=== PATIENT | female | born 1995 | race Caucasian/White ===

== ENCOUNTER → 2018-03-09 11:29 | Outpatient (CLI) | payer OTHER, SELFPAY ==
[2018-03-09 12:03] LABS: Add Manual Diff / Slide Review NO; Basophils Percent Auto 0.8 % (0-2); Eosinophils Percent Auto 0.9 % (2-4); Hematocrit 43.6 % (36-46); Lymphocytes Percent Auto 21.3 % (25-40); Mean Corpuscular HGB Conc 34.4 % (30-36); Mean Corpuscular Volume 90.1 fL (80-100); Monocytes Percent Auto 4.3 % (3-14); Neutrophils Absolute Auto 5100 /uL (3000-5900); Neutrophils Percent Auto 72.7 % (50-75); Platelet Count 270 X10^3/uL (150-400); Red Blood Cell Count 4.84 X10^6/uL (4.0-5.2); Red Cell Distribution Width 12.1 % (11.6-14.8)
[2018-03-09 15:59] LABS: Hepatitis B Surface Antigen NEGATIVE s/c (NEGATIVE); Rubella Antibody IgG 37.6 IU/mL (>15)
[2018-03-09 16:16] LABS: HIV 1 and 2 Antibody NEGATIVE (NEGATIVE); Hep C Virus Ab w/Reflex Quant NEGATIVE s/c (NEGATIVE)
[2018-03-10 14:03] LABS: Varicella IgG Antibody < 135.00 Index (< 135.00)
[2018-03-11 13:46] LABS: HSV 2 IGG AB < 0.90 index (< 0.90); HSV1IGG < 0.90 index (< 0.90)
[2018-03-12 15:30] LABS: Rapid Plasma Reagin NON REACTIVE
== END ==
PROVIDERS: Visit Provider Obstetrics & Gynecology
DX: Z34.91 Encounter for supervision of normal pregnancy, unspecified, first trimester (principal)
CPT/HCPCS: 36415; 80055; 86695; 86696; 86703; 86787; 86803; 86850; 86900; 86901; 87086

== ENCOUNTER 2018-05-04 08:54 | Day surgery (SDC) | payer OTHER, SELFPAY ==
[2018-05-01 08:24] VITALS: BMI 26.3
--- NOTE | 2018-05-04 | PATH_ITS ---
[facility] Accession Number: [id number] . 01 Material submitted: . PRODUCTS OF CONCEPTION . 02 Diagnosis: Products of Conception: Products of conception (chorionic villi) identified. MRV/05/06/2018 . 02 Electronically signed: . Shelly Davis MD, Pathologist NPI- [id number] . 01 Gross description: . Received in formalin, labeled POC, are multiple fragments of red-brown hemorrhagic spongy tissue (8.5 x 8.0 x 1.5 cm in aggregate). No tissue is identified. Shrimp Packer tissue submitted in cassettes A1-A4. ([id number]) /MRV . 02 Pathologist provided ICD-10: O02.1 . 02 CPT . 642274 Specimen Comment: A duplicate report has been generated due to demographic updates. Performed at: [facility] [address] [id number] MD Kanu Tena MD Phone: [phone] Performed at: 02 [facility] [place] [address] [place], [place] [id number] MD Jose Olson MD Phone: [phone]
[2018-05-04 09:07] VITALS: BP 110/77; PULSE 84; RESP 12; TEMP 36.8; O2SAT 98; BMI 26.3
[2018-05-04] MEDS: LACTATED RINGERS 1,000 ML 100 ML IV (09:29)
--- NOTE | 2018-05-04 10:39 | PM.PREOP ---
Pre-operative Note Interval Note Pre-op Check: Yes History & Physical exam performed today by Physician Changes: No
--- NOTE | 2018-05-04 10:39 | PM.HP.1 ---
History of Present Illness Date Patient Seen: 05/04/18 Time Patient Seen: 10:39 Chief complaint: D&C Narrative: Patient is a 23-year-old 1 para 0 with a missed AB at 13 weeks. Fetus measuring 9 weeks. Patient started light bleeding 3 days ago. Patient History Medical History Missed (Acute) Family & Social History Social History: household members spouse,family Meds Allergies Allergy/AdvReac Type Severity Reaction Status Date / Time No Known Drug Allergies Allergy Unverified 05/01/18 08:25 Exam Vital Signs (past 8 hours): - 05/04/18 09:07 Temperature 98.3 F Pulse Rate 84 Respiratory Rate 12 Blood Pressure 110/77 Pulse Oximetry 98 Oxygen Delivery Method Room Air Narrative Exam Narrative: HEENT: No thyromegaly, no anterior cervical or supraclavicular lymphadenopathy. Lungs:Clear to auscultation bilaterally, no wheezes. Cardiovascular: Regular rate and rhythm, no murmurs, rubs, or gallops. Abdomen: No scars. No hepatosplenomegaly. No masses palpable. External genitalia: Normal Vagina: Small amount of blood Cervix: Normal Bimanual exam: 9 week Week size uterus. Mobile.] Rectal: No masses. Assessment & Plan (1) Missed with demise before 20 completed weeks of gestation: Current visit: Yes Status: Acute Plan: Assessment/Plan Narrative: Assessment: 23-year-old 1 para 0 with a 9 week missed Plan: Suction D&C The risks, benefits, and alternatives to the procedure were explained to the patient. The risks including bleeding, infection, and uterine perforation. Patient understands these risks and agrees to proceed. A full P AR-Q was held and consent form was signed.
--- NOTE | 2018-05-04 10:45 | SUR.OPER ---
Lithotomy on padded OR bed, head on pillow, arms secured on padded arm boards at <90 degrees abduction. Legs secured in padded yellow fins stirrups.
[2018-05-04 11:33] VITALS: BP 114/79; PULSE 82; RESP 16; TEMP 36.4; O2SAT 98
[2018-05-04 11:38] VITALS: BP 117/79; PULSE 83; RESP 13; O2SAT 97
[2018-05-04 11:43] VITALS: BP 130/84; PULSE 91; RESP 20; O2SAT 95
[2018-05-04 11:48] VITALS: BP 110/65; PULSE 87; RESP 18; TEMP 36.4; O2SAT 98
[2018-05-04] MEDS: RHO(D) IMMUNE GLOBULIN 1,500 UNIT SYRINGE 1500 UNIT IM (12:09)
[2018-05-04 12:26] VITALS: BP 103/58; PULSE 92; RESP 16; TEMP 36.5; O2SAT 94
--- NOTE | 2018-05-05 02:02 | P.OP_ITS ---
Operative Date/Time/Diagnoses Date of procedure: 05/04/18 Time of procedure: 11:30 Pre-op diagnosis: Missed Ab at 9 weeks Post-op diagnosis: same Procedure: Procedures Operation Date: 05/04/18 10:15 Actual Procedures Side Surgeon p Dilation and Curettage-Suction Not Applicable Betina Hilliard MD Indications: Missed Ab at 9 weeks Surgeon: Betina Hilliard Anesthesia Type: General (LMA) Operative Notes Findings: 10 week size anteverted uterus Large amount of products of conception Closure Type: not applicable Specimen(s): uterine contents (POC) Estimated blood loss (mL): 150 Blood products transfused: none Procedure in detail: After informed consent was obtained, the patient was taken to the operating room where she was placed in the dorsal supine position. After adequate LMA general anesthesia was achieved, she was placed in the dorsal lithotomy position, improved and prepped and draped in the usual sterile fashion. A time-out was performed. A bivalve speculum was placed into the vagina , and the anterior lip of the cervix grasped with a single-tooth tenaculum. Cervical os was sequentially dilated to the # 9 Hegar dilator. The # 8 curved plastic curette passed easily into the endometrial cavity. Several passes with suction revealed a large amount of amniotic fluid and tissue. The polyp forceps were placed into the uterus and a large piece of placenta was removed. Several more passes with suction revealed blood only. When the plastic curette was removed there was brisk bleeding from cervical os. Several more passes with suction revealed a large amount of tissue. The polyp forceps were again used to remove a large piece of tissue from the uterine cavity. Several more passes with suction revealed blood only. Gentle sharp curettage was performed yielding a sandpaper feel of the uterine wall. 1 more pass with suction revealed blood only. There was minimal bleeding from the cervical os. Pitocin was given in the IV fluids. The instruments were removed from the uterus. Single-tooth tenaculum was removed from the anterior lip of the cervix. The bivalve speculum was removed from the vagina. Complications: none Post-operative Condition: stable Disposition: PACU Plan for aftercare: Home after recovery
== END 2018-05-04 12:15 | disposition home or self-care (01) ==
PROVIDERS: Visit Provider Obstetrics & Gynecology
PROC: (CPT 58120; principal; 2018-05-04 10:15)
DX: O02.1 Missed abortion (principal); Z3A.09 9 weeks gestation of pregnancy
CPT/HCPCS: 59820; 88305; J1100; J1885; J2250; J2405; J2704; J2790; J3010

== ENCOUNTER → 2019-04-09 12:27 | Outpatient (CLI) | payer OTHER, SELFPAY ==
[2019-04-09 12:47] LABS: Add Manual Diff / Slide Review NO; Basophils Absolute Auto 0 /uL (0-100); Basophils Percent Auto 0.5 % (0-2); Eosinophils Absolute Auto 0 /uL (0-450); Eosinophils Percent Auto 0.5 % (2-4); Hematocrit 37.6 % (36-46); Hemoglobin 13.3 g/dL (12.0-16.0); Lymphocytes Absolute Auto 1200 /uL (1100-4500); Lymphocytes Percent Auto 21.5 % (25-40); Mean Corpuscular HGB Conc 35.3 % (30-36); Mean Corpuscular Hemoglobin 31.8 PG (26-34); Mean Corpuscular Volume 90.1 fL (80-100); Monocytes Absolute Auto 200 /uL (0-900); Monocytes Percent Auto 3.7 % (3-14); Neutrophils Absolute Auto 4200 /uL (1500-7000); Neutrophils Percent Auto 73.8 % (50-75); Platelet Count 208 X10^3/uL (150-400); Red Blood Cell Count 4.18 X10^6/uL (4.0-5.2); Red Cell Distribution Width 12.4 % (11.6-14.8); White Blood Cell Count 5.7 X10^3/uL (4.5-11.0)
[2019-04-09 13:11] LABS: Appearance Urine UA SL CLOUDY; Bilirubin Urine UA NEGATIVE (NEGATIVE); Color Urine UA YELLOW; Glucose Urine UA NEGATIVE (Negative); Ketones Urine UA NEGATIVE (NEGATIVE); Leukocyte Esterase Urine UA NEGATIVE (NEGATIVE); Nitrite Urine UA NEGATIVE (Negative); Occult Blood Urine UA NEGATIVE (Negative); Protein Urine UA TRACE (Negative); Specific Gravity Urine UA 1.015 (1.000-1.035)
[2019-04-09 15:52] LABS: Hepatitis B Surface Antigen NEGATIVE s/c (NEGATIVE); Rubella Antibody IgG 28.8 IU/mL (>15)
[2019-04-09 16:04] LABS: Hep C Virus Ab w/Reflex Quant NEGATIVE s/c (NEGATIVE)
[2019-04-09 16:38] LABS: HIV 1 & 2 Ab/Ag 4th Gen Combo NEGATIVE (NEGATIVE)
[2019-04-11 13:32] LABS: RPR Screen Nonreactive (Nonreactive)
[2019-04-13 15:02] LABS: AFP, Serum 27.1 ng/mL; Calc Gestational Age 16.3; Cigarette Smoker N; Donated Egg N; Donor Egg Age NOT GIVEN; Estriol, Free 0.72 ng/mL; Inhibin A, Dimeric 82 pg/mL; Maternal Weight 141 lbs; Number of Fetuses 1; Previous Pregnancy Down Syndro N; hCG, MoM 1.21; hCG, Serum 40.8 IU/mL
[2019-04-13 16:10] LABS: Varicella IgG Antibody < 135.00 Index (< 135.00)
== END ==
PROVIDERS: Visit Provider Obstetrics & Gynecology
DX: Z34.02 Encounter for supervision of normal first pregnancy, second trimester (principal)
CPT/HCPCS: 80055; 81003; 82105; 82677; 84702; 85025; 86336; 86592; 86762; 86787; 86803; 86850; 86900; 86901; 87086; 87340; 87389

== ENCOUNTER → 2019-05-05 12:09 | Outpatient (CLI) | payer OTHER, SELFPAY ==
--- NOTE | 2019-05-05 12:11 | DI.US.S_ITS ---
PROCEDURE: US OB >= 14 WEEKS FETUS INDICATIONS: Anatomy Scan OUTSIDE/PRIOR DATING DATA: Last menstrual period (LMP): 12/06/18. LMP-based estimated date of delivery (SAHIL): 09/12/19. First dating scan (date and location): 02/08/19. Estimated date of delivery (SAHIL) from first dating scan: 09/22/19. TECHNIQUE: Real-time scanning was performed of the fetus, with image documentation and biometric measurements. Endovaginal scanning: No COMPARISON: [facility], , OB >= 14 WEEKS FETUS, 03/30/2019, 15:41. FINDINGS: General: A single living intrauterine gestation is present. Presentation: Breech. Placenta: Placental position is posterior, without previa. Amniotic fluid index: 13.1 cm, normal range is 5-24 cm. heart rate: 141 beats per minute. Maternal cervical canal: 3.7 cm long. Normal lower limit is 2.5 cm. biometrics: Biparietal diameter: 20 weeks 0 days Head circumference: 20 weeks 1 day Abdominal circumference: 20 weeks 0 days Femur length: 19 weeks 4 days Estimated gestational age from initial scan: 20 weeks 0 days Composite gestational age from present scan: 20 weeks 0 days Estimated weight and percentile: 314 g; 34 percentile Measurement variability for biometric dating: +/- 7 days from 14 weeks to 15 weeks 6 days gestation, +/- 10 days from 16 weeks to 21 weeks 6 days gestation, +/- 2 weeks from 22 weeks to 27 weeks 6 days gestation, +/- 3 weeks for 28 weeks gestation or later. weight reference: 4500 g or EFW >90/95% is considered macrosomia or large for gestational age. EFW <10% is small for gestational age. EFW 5% or less is considered intra-uterine growth restriction. Anatomic survey: Neuro: Ventricles are non-dilated at less than 10 mm. Cisterna magna is normal at 3-11 mm. Cerebellum is normal in size and morphology. Nuchal skin fold: Normal at less than 6 mm between 14-21 weeks gestational age. Face: Nose and lips, facial profile are normal. Spine: No evidence for spina bifida. Heart: 4-chambered heart is present, with normal ventricular outflow tracts. Diaphragm: Diaphragm is intact. Stomach: Left-sided stomach is present. Kidneys: No hydronephrosis. Normal is less than 5 mm in 2nd trimester, less than 7 mm in 3rd trimester. Cord: 3-vessel cord has orthotopic insertion. Bladder: Normal in size. Extremities: All 4 extremities identified. IMPRESSION: 1. Single living IUP redemonstrated and interval growth is normal. 2. Normal anatomic survey. Dictated by: Tam BALTAZAR Interpreted: Brando Lima MD on 05/05/2019 at 13:24 Approved by: Brando Lima M.D. on 05/05/2019 at 16:28
== END ==
PROVIDERS: Visit Provider Obstetrics & Gynecology
DX: Z34.02 Encounter for supervision of normal first pregnancy, second trimester (principal); Z3A.20 20 weeks gestation of pregnancy
CPT/HCPCS: 76811

== ENCOUNTER → 2019-06-29 08:52 | Outpatient (CLI) | payer OTHER, SELFPAY ==
[2019-06-29 10:58] LABS: Hematocrit 33.5 % (36-46)
[2019-06-29 11:19] LABS: GTT (PREG) 1 Hour PP 50gm Dose 93 mg/dL (76-139)
== END ==
PROVIDERS: PCP Family Medicine; Visit Provider Family Medicine
DX: O98.912 Unspecified maternal infectious and parasitic disease complicating pregnancy, second trimester (principal)
CPT/HCPCS: 36415; 82950; 85014; 85018

== ENCOUNTER → 2019-07-28 16:33 | Outpatient (CLI) | payer OTHER, SELFPAY | PROVIDERS: PCP Family Medicine; Visit Provider Family Medicine | DX: Z34.83 Encounter for supervision of other normal pregnancy, third trimester (principal) | CPT/HCPCS: 36415; 86850 ==

== ENCOUNTER → 2019-08-31 16:43 | Outpatient (CLI) | payer OTHER, SELFPAY ==
[2019-09-01 11:04] LABS: Strep Grp B PCR POS for Grp B Strep
== END ==
PROVIDERS: PCP Family Medicine; Visit Provider Family Medicine
DX: Z34.83 Encounter for supervision of other normal pregnancy, third trimester (principal)
CPT/HCPCS: 87653

== ENCOUNTER 2019-09-27 20:08 | Inpatient (IN) | payer OTHER, SELFPAY ==
[2019-09-27] MEDS: miSOPROStoL 25 MCG TABLET VAG (21:19)
[2019-09-27 21:54] LABS: Add Manual Diff / Slide Review NO; Basophils Absolute Auto 100 /uL (0-100); Basophils Percent Auto 0.5 % (0-2); Eosinophils Absolute Auto 100 /uL (0-450); Eosinophils Percent Auto 0.6 % (2-4); Hematocrit 36.5 % (36-46); Hemoglobin 12.5 g/dL (12.0-16.0); Lymphocytes Absolute Auto 1900 /uL (1100-4500); Mean Corpuscular HGB Conc 34.3 % (30-36); Mean Corpuscular Hemoglobin 32.9 PG (26-34); Mean Corpuscular Volume 95.7 fL (80-100); Monocytes Absolute Auto 600 /uL (0-900); Monocytes Percent Auto 5.7 % (3-14); Neutrophils Absolute Auto 7300 /uL (1500-7000); Neutrophils Percent Auto 74.2 % (50-75); Platelet Count 181 X10^3/uL (150-400); Red Blood Cell Count 3.82 X10^6/uL (4.0-5.2); Red Cell Distribution Width 12.6 % (11.6-14.8); White Blood Cell Count 9.9 X10^3/uL (4.5-11.0)
[2019-09-27 23:01] VITALS: BP 132/75
[2019-09-28] MEDS: miSOPROStoL 25 MCG TABLET VAG (01:44)
--- NOTE | 2019-09-28 08:30 | PM.OBHP.1 ---
OB HPI Date/Time Date of admission: 09/27/19 Date Patient Seen: 09/28/19 Time Patient Seen: 07:45 History of Present Condition Chief complaint: : 2 Para: 0 Estimated Date of Delivery: 09/22/19 Estimated Gestational Age (weeks): 40w6d Narrative: Arina Wallace is a 24 year old at 40w6d who presented for IOL for post-dates. The pt has been feeling well. No contractions, bleeding, or LOF. She is feeling her baby move regularly. Indications Indication for induction OB: post dates History of Present care: good care Dating criteria: based on 1st trimester US only Ultrasounds: normal 1st trimester US and normal mid trimester US Obstetrical complications: none Medical complications: none Preadmission Labs Blood type: A (-) negative -: Antibody screen: negative, GBS status: positive, HBsAG: negative, HIV: negative and RPR/VDLR: negative -: Chlamydia screen: not detected and Gonorrhea screen: not detected -: Rubella: immune and Varicella: not immune HCT: 33.5 HCAB: negative PAP: Normal Quad screen: Normal 1 hr GTT: 93 Prior (ies) History: 04/2018 - Spontaneous Evaluation Evaluation Baseline heart rate: 135 Variability: Moderate (11-25) monitor accelerations: Present monitor decelerations: Absent Contraction Frequency (minutes): 3 Uterine Contraction Intensity: Moderate Category of Tracing: I Cervical dilation (cm): 1 Cervical effacement (%): 50 station: -2 Laboratory results: Laboratory Tests 09/27/19 09/27/19 21:30 21:30 WBC 9.9 RBC 3.82 L Hgb 12.5 Hct 36.5 MCV 95.7 MCH 32.9 MCHC 34.3 RDW 12.6 Plt Count 181 Neut % (Auto) 74.2 Lymph % (Auto) 19.0 L [place] % (Auto) 5.7 Eos % (Auto) 0.6 L Baso % (Auto) 0.5 Neut # (Auto) 7300 H Lymph # (Auto) 1900 [place] # (Auto) 600 Eos # (Auto) 100 Baso # (Auto) 100 Blood Type A Negative Antibody Screen Negative [facility] Medical History (Updated 03/30/19 @ 15:30 by Betina Hilliard MD) Missed (Acute) Social History household members: spouse and family Smoking Status: Never smoker Meds Home Medications and Allergies Home Medications Medication Instructions Recorded Confirmed Type No Known Home Medications 09/27/19 09/27/19 History Allergies Allergy/AdvReac Type Severity Reaction Status Date / Time No Known Drug Allergies Allergy Unverified 05/19/18 11:09 Exam Narrative Exam Narrative: Gen: NAD, sitting comfortably in bed, appears well CV: RRR, no murmurs Resp: clear to auscultatoin bilaterally Abd: soft, gravid, nontender Ext: trace edema Objective Labs Result Diagrams: 09/27/19 21:30 Labs: Laboratory Results - last 24 hr 09/27/19 09/27/19 21:30 21:30 WBC 9.9 RBC 3.82 L Hgb 12.5 Hct 36.5 MCV 95.7 MCH 32.9 MCHC 34.3 RDW 12.6 Plt Count 181 Neut % (Auto) 74.2 Lymph % (Auto) 19.0 L [place] % (Auto) 5.7 Eos % (Auto) 0.6 L Baso % (Auto) 0.5 Neut # (Auto) 7300 H Lymph # (Auto) 1900 [place] # (Auto) 600 Eos # (Auto) 100 Baso # (Auto) 100 Blood Type A Negative Antibody Screen Negative Assessment and Plan Assessment and Plan Assessment and Plan narrative: 24yo at 40w6d who presented for IOL for post-dates. No complications with . Received 2 doses of cytotec last night, now with contractions increasing in intensity. GBS positive, Rh negative. - Expectant management, anticipate - GBS positive, start antibiotic prophylaxis now - Rh negative, cord blood after - Epidural for pain control when desired - FHT reassuring - Start pitocin, titrate as tolerated
[2019-09-28] MEDS: LACTATED RINGERS 1,000 ML 100 ML IV ×3 (08:32→14:38)
[2019-09-28] MEDS: OXYTOCIN PREMIX 30 UNIT/500 ML PLAST..BAG IV (08:35)
[2019-09-28] MEDS: PENICILLIN G POTASSIUM 5,000,000 UNIT in DEXTROSE 5% IN WATER 250 ML IV (10:05)
--- NOTE | 2019-09-28 12:00 | P.PCN_ITS ---
Regional Block Pre-procedure Procedure: Continuous Lumbar Epidural for L&D Attending OB provider: Dorothy Juan PMH/BIENVENIDO narrative: term labor, no complications, no significant medical history Hx: No personal or family history of anesthesia problems. ASA Class: II Labs: Hct 36.5 % (36-46) 09/27/19 21:30 Plt Count 181 X10^3/uL (150-400) 09/27/19 21:30 Medications: Current Medications Generic Name Dose Route Start Last Admin Trade Name Freq PRN Reason Stop Dose Admin Calcium Carbonate 500 mg 09/27/19 20:34 Tums PO Q2HR PRN Dyspepsia Fentanyl 50 mcg 09/27/19 20:34 Sublimaze IV Q1H PRN Pain, Moderate (4-6) Lactated Ringer's 1,000 mls @ 100 mls/hr 09/27/19 20:45 09/28/19 11:49 Lactated Ringers IV 100 mls/hr CONT SABINO Administration Oxytocin/Lactated Ringer's 30 unit in 500 mls @ 3 mls/hr 09/27/19 20:45 09/28/19 08:35 Oxytocin Premix IV 3 milliunit/min TITRATE SABINO 3 mls/hr Administration Protocol 3 MILLIUNIT/MIN Penicillin G Potassium 3,000,000 unit in 50 mls @ 100 mls/hr 09/28/19 14:00 Penicillin G Potassium IV Q4H SABINO Misoprostol 25 mcg 09/27/19 20:34 09/28/19 01:44 Cytotec VAG 25 mcg Q4HR PRN Administration induction Naloxone HCl 0.2 mg 09/27/19 20:34 Narcan IV Q2MIN PRN Opiate Reversal Ondansetron HCl 4 mg 09/27/19 20:34 Zofran IV Q4HR PRN Nausea And Vomiting Zolpidem Tartrate 5 mg 09/27/19 23:14 Ambien PO BEDTIME PRN Sleep Allergies: Allergies Allergy/AdvReac Type Severity Reaction Status Date / Time No Known Drug Allergies Allergy Unverified 05/19/18 11:09 Procedure Insertion date: 09/28/19 Insertion time: 11:20 Prep/Local: betadine x3 Interspace: L2-3 Patient position: sitting Needle: 18 gauge Battery Medicstead (27g Pencan through Hustead for CSE. 1mL 0.25% bupiv spinal dose) Loss of resistance with: saline STACY at (cm): 4 Catheter placed at SKIN (cm): 9 Catheter in SPACE (cm): 5 Initial Medications TEST DOSE time: 11:21 TEST DOSE: 1.5% lidocaine with epinephrine 1:200k (mL): 3 BOLUS DOSE time: 11:24 BOLUS DOSE (mL): 3 BOLUS DOSE med: 0.125% bupivacaine with fentanyl 10 mcg/mL Infusion INFUSION: 0.125% bupivacaine and with fentanyl 2 mcg/mL Initial rate (mL/hr): 8 Post-procedure Anesthesia time START: 11:10 Anesthesia time END: 23:21 Post-procedure Anesthesia Assessment: Yes CV function: HR/BP stable, Yes Resp function: RR/sat/airway adequate, Yes Post-op hydration adequate and Yes Pain control adequate
--- NOTE | 2019-09-28 12:51 | PM.OBPNLAB ---
Date/Time Date Patient Seen: 09/28/19 Time Patient Seen: 12:15 Pain Control Pain control: epidural Pelvic Exam Dilation (cm): 2 Effacement (%): 50 station: -2 Amniotic membrane status: Intact Contractions Monitor mode: External Pitocin rate (mU/min): 3 Contraction frequency (min): 2 Contraction pattern: Regular Contraction intensity: Strong/Firm Status status: Category l Heart Rate Baseline: 130 Monitor Accelerations: Present Monitor Decelerations: Absent Monitor Variability: Moderate Assessment and Plan Comments: 24yo at 40w6d who presented for IOL for post-dates. No complications with . Received 2 doses of cytotec last night. Regular, painful contractions prompting an epidural on very low dose pitocin. Very minimal cervical change. GBS positive, Rh negative. - Expectant management, anticipate - GBS positive, penicillin prophylaxis. First dose given at 10am. - Rh negative, cord blood after - Epidural in place for pain control - FHT reassuring - Whitman catheter placed to promote dilation, as unable to titrate pitocin higher due to contraction frequency.
[2019-09-28] MEDS: PENICILLIN G POTASSIUM 3,000,000 UNIT/50 ML FROZ.PIGGY 100 UNIT IV ×2 (14:39→18:14)
--- NOTE | 2019-09-28 16:24 | PM.OBPNLAB ---
Date/Time Date Patient Seen: 09/28/19 Time Patient Seen: 16:24 Pain Control Pain control: epidural Pelvic Exam Dilation (cm): 5 Effacement (%): 75 station: -1 Amniotic membrane status: Ruptured Comments: After informed consent, AROM performed with clear fluid present Contractions Monitor mode: External Pitocin rate (mU/min): 3 Contraction frequency (min): 4 Contraction pattern: Regular Contraction intensity: Strong/Firm Status status: Category l Heart Rate Baseline: 130 Monitor Accelerations: Present Monitor Decelerations: Absent Monitor Variability: Moderate Assessment and Plan Comments: 24yo at 40w6d who presented for IOL for post-dates. No complications with . Received 2 doses of cytotec last night. Regular, painful contractions prompting an epidural on very low dose pitocin. Whitman catheter placed, now removed due to dilation beyond catheter. AROM performed with clear fluid present. GBS positive, Rh negative. - Expectant management, anticipate - GBS positive, penicillin prophylaxis. First dose given at 10am. - Rh negative, cord blood after - Epidural in place for pain control - FHT reassuring - Continue pitocin, titrate up as tolerated
--- NOTE | 2019-09-28 23:58 | PM.OBPRVD ---
Labor & Delivery Delivery date: 09/28/19 Intrapartal events: None Delivery monitor: external FHT Route of delivery: Episiotomy description: None Estimated blood loss (mL): 350 Anesthesia type: Epidural Complications: None Narrative: PROCEDURE: at 40w6d presented for IOL due to post-dates and was admitted to Labor and Delivery. The pt received 2 doses cytotec, and then was started on pitocin. With no significant cervical change, olson catheter was then placed. The pt progressed to 5cm, and the catheter was removed. The pitocin was then titrated up, and AROM performed with production of clear fluid. The patient progressed through the 1st stage over 4 hours. Pain was controlled with an epidural. She received adequate GBS prophylaxis with penicillin. The patient progressed through the 2nd stage over 2:45 hours and delivered a viable female infant with APGARs 9/9 at 23:21 via without complications. The perineum and vagina were inspected with 2nd degree stellate laceration repaired with 3-O chromic, and superior labial laceration not repaired due to hemostasis. PREPROCEDURE DIAGNOSIS: Intrauterine at 40w6d GBS positive RH negative POSTPROCEDURE DIAGNOSIS: Intrauterine at 40w6d, delivered Same as preprocedure PROCEDURE: Spontaneous vaginal delivery INDUCTION: cytotec x2, then olson catheter LABOR AUGMENTATION: AROM and pitocin ROM APPEARANCE: clear BABY A DELIVERY TIME: 23:21 BABY A OUTCOME: viable BABY A SEX: Female BABY A WEIGHT: 7lb15.4oz, 3611g BABY A NUCHAL CORD: No PLACENTA DELIVERY TIME: 23:26 PLACENTA APPEARANCE: Intact Baby 1: Infant gender: Female Presentation: vertex position: Right Occiput Anterior Placenta delivery description: Spontaneous cord vessel description: 3 Vessels Plan for aftercare: Normal care
[2019-09-29] MEDS: ACETAMINOPHEN 325 MG TABLET 650 MG PO ×4 (00:52→21:04)
[2019-09-29] MEDS: DERMOPLAST SPRAY 20% 60 ML 1 SPRAY TOP (00:52)
[2019-09-29] MEDS: IBUPROFEN 600 MG TABLET PO ×4 (00:52→21:04)
[2019-09-29] MEDS: DOCUSATE 100 MG CAPSULE PO (08:20)
[2019-09-29] MEDS: PRENATAL VIT,CALC/IRON/FOLIC 1 TABLET 1 TAB PO (08:20)
--- NOTE | 2019-09-29 09:06 | PM.OBPN.1 ---
Subjective - OB Subjective Patient comments: no complaints [place] baby status: doing well feeding status: exclusively breast feeding Narrative: Pt is voiding and ambulating without difficulty. Has not yet passed flatus. Date Patient Seen: 09/29/19 Time Patient Seen: 08:00 Exam Narrative Exam Narrative: Gen: NAD, sitting comfortably in bed, appears well CV: RRR, no murmurs Resp: clear to auscultation bilaterally Abd: soft, nontender, nondistended, fundus firm and below umbilicus Ext: trace edema Objective Labs Result Diagrams: 09/27/19 21:30 Assessment & Plan Plan day: 1 plan OB: routine care Comments: 24yo PPD #1 s/p without complications. Pt doing well. - Normal care - support Time Spent With Patient Time: Total time spent is greater than 50% in coordination of care (as documented) at patient's floor/unit and/or counseling patient: Time with patient: 15-24 minutes
[2019-09-30] MEDS: IBUPROFEN 600 MG TABLET PO ×2 (03:33→09:23)
[2019-09-30] MEDS: ACETAMINOPHEN 325 MG TABLET 650 MG PO ×2 (03:33→09:23)
--- NOTE | 2019-09-30 09:02 | PM.OBDS.1 ---
Discharge Providers Provider Date of admission: 09/27/19 20:08 Discharge Date: 09/30/19 Primary care physician: Dorothy Juan MD Consults: 09/30/19 00:00 Consult to Floor Covering Contractor Routine Comment: Discharge provider: Dorothy Juan MD Summary Hospital Course Date Patient Seen: 09/30/19 Time Patient Seen: 08:30 Procedures: Spontaneous vaginal delivery Hospital Course: The pt presented for IOL due to post-dates. She received 2 doses cytotec, olson catheter, and pitocin for induction. AROM was performed with production of clear fluid. She had an epidural for pain control. She received adequate GBS prophylaxis with penicillin. She delivered a viable baby girl at 23:21 on 09/28/19. 2nd degree perineal laceration was repaired. She tolerated delivery well. , there were no complications. At the time of discharge she was voiding, ambulating, and passing flatus without difficulty. Her lochia was decreasing appropriately. She was well. Her pain was adequately controlled. She will f/u in clinic in 6 weeks. She is undecided regarding contraception. Peripartum Data Delivery Method: Natural Vaginal Laceration description: Perineal - 2nd Degree Episiotomy description: None Procedures: Spontaneous vaginal delivery complications: none 1: Gender: Female Disposition of : home Status at Discharge Cognitive/behavioral status at discharge: oriented Functional status at discharge: independent ambulation Overall status at discharge: patient is progressing back to baseline Time Spent with Patient Time attestation: Total time spent providing and/or coordinating discharge services: Time spent: Greater than 30 minutes Specific discharge activities: No intercourse for 6 weeks Objective Labs Result Diagrams: 09/27/19 21:30 Discharge Plan Discharge Plan Patient Disposition: Home Discharge orders & Medications Prescriptions: New acetaminophen 325 mg Tablet 650 mg PO Q6HR PRN (Reason: Pain, Mild (1-3)) Qty: 30 RF: 0 Dermoplast (with menthol) 20-0.5 % Aerosol 1 spray topical Q1HR PRN (Reason: perineal pain) Qty: 15 RF: 0 docusate sodium [DOK] 100 mg Capsule 100 mg PO BID Qty: 30 RF: 0 ibuprofen 600 mg Tablet 600 mg PO Q6HR PRN (Reason: Pain, Mild (1-3)) Qty: 30 RF: 0 Gsv-S-Ijsitt Cream 1 applic topical PRN PRN (Reason: Tenderness) Qty: 15 RF: 0 Prenatabs Rx 29 mg iron- 1 mg Tablet 1 tab PO DAILY Qty: 30 RF: 0 Follow up/Referrals: Dorothy Juan MD [Primary Care Provider] - 6 Weeks Diet/Activity/Treatments Diet: Regular Skin/Wound/Dressing Care Report to your healthcare provider any signs of infection, such as:: chills, fever, increased pain and unusual drainage Visit Report/Discharge Packet Instructions: DI for Labor and Delivery, Vaginal Visit Report Forms: Patient Portal/API, Stroke Signs & Symptoms Discharge Data Primary Care Provider: Dorothy Juan
[2019-09-30] MEDS: PRENATAL VIT,CALC/IRON/FOLIC 1 TABLET 1 TAB PO (09:24)
[2019-09-30] MEDS: DOCUSATE 100 MG CAPSULE PO (09:24)
[2019-09-30 09:37] VITALS: BP 101/68; PULSE 80; RESP 16; TEMP 36.8
== END 2019-09-30 11:05 | disposition home or self-care (01) | DRG 807 ==
PROVIDERS: Admitting Provider Family Medicine; PCP Family Medicine; Referring Provider Family Medicine; Visit Provider Family Medicine
DX: O48.0 Post-term pregnancy (principal); Z37.0 Single live birth; Z3A.40 40 weeks gestation of pregnancy; O99.824 Streptococcus B carrier state complicating childbirth; O70.1 Second degree perineal laceration during delivery
CPT/HCPCS: 01967; 59050; 59400; 85025; 86850; 86900; 86901; G0379; J2540; J2590